=== PATIENT | male | born 1975 | race Caucasian/White ===

== ENCOUNTER 2020-06-01 16:56 | Emergency (ER) | payer MEDICAID, OTHER, SELFPAY ==
[~2020-06-01] VITALS: Ht 180.3 cm; Wt 86.4 kg
[2020-06-01] MEDS ORDERED: DIPHENHYDRAMINE 50 MG/ML, 1ML ONE (17:51)
[2020-06-01] MEDS ORDERED: KETOROLAC 30 MG/1 ML ONE (17:51)
[2020-06-01] MEDS ORDERED: METOCLOPRAMIDE 5 MG/ML, 2ML ONE ×2 (17:51→17:53)
[2020-06-01] MEDS ORDERED: METOCLOPRAMIDE 5 MG/ML, 2ML IVPush ONE (18:00)
[2020-06-01] MEDS ORDERED: KETOROLAC 30 MG/1 ML IVPush ONE (18:00)
[2020-06-01] MEDS ORDERED: DIPHENHYDRAMINE 50 MG/ML, 1ML IVPush ONE (18:00)
[2020-06-01] MEDS ORDERED: SODIUM CHLORIDE 0.9% 1,000ML IVBOLUS ONE (18:00)
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
[2020-06-01 19:01] VITALS: BP 109/62
== END 2020-06-01 19:05 | disposition home or self-care (01) ==
LOC: ED 18:40
DX: G43.109 Migraine with aura, not intractable, without status migrainosus (principal); H53.8 Other visual disturbances; R11.0 Nausea; Z87.891 Personal history of nicotine dependence
CPT/HCPCS: 82962; 96361; 96374; 96375; 99284; J1200; J1885; J2765; J7030

== ENCOUNTER 2020-08-23 13:08 | Emergency (ER) | payer MEDICAID, OTHER ==
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
--- NOTE | 2020-08-23 14:00 | NUR ---
Cj ASTUDILLO at bedside for eval
--- NOTE | 2020-08-23 14:17 | NUR ---
pt to CT scan via [facility]
--- NOTE | 2020-08-23 14:45 | NUR ---
pt has gabriel returned from CT and was resting on gurney with lights dimmed, but has gotten off of the gurney and removed his c-collar as well as his monitoring equipmnt. pt is now anxious and states "I am having anxiety and feeling nauseated" no vomiting. pt back to gurmiami and c-collar back in place. cool washloth to forehead Cj ASTUDILLO notified
[2020-08-23 14:46] VITALS: BP 98/52
--- NOTE | 2020-08-23 15:05 | NUR ---
Cj ASTUDILLO has been to bedside for recheck report to Tara GREEN
== END 2020-08-23 15:24 | disposition home or self-care (01) ==
LOC: ED 15:20
DX: S16.1XXA Strain of muscle, fascia and tendon at neck level, initial encounter (principal); G43.909 Migraine, unspecified, not intractable, without status migrainosus; V29.49XA Motorcycle driver injured in collision with other motor vehicles in traffic accident, initial encounter; Y93.89 Activity, other specified; Y92.410 Unspecified street and highway as the place of occurrence of the external cause; Y99.8 Other external cause status
CPT/HCPCS: 70450; 72125; 99285

== ENCOUNTER 2020-11-23 09:57 | Emergency (ER) | payer MEDICAID, OTHER ==
[~2020-11-23] VITALS: Ht 177.8 cm; Wt 87.7 kg
[2020-11-23 10:15] VITALS: BP 121/68
--- NOTE | 2020-11-23 10:21 | NUR ---
pt presents to ed with c/o R foot pain in heel x 2 weeks. pt a&o, resps even and unlabored, vss, nadn.
[2020-11-23] MEDS ORDERED: KETOROLAC 30 MG/1 ML IM ONE (11:00)
--- NOTE | 2020-11-23 11:54 | NUR ---
pt educated on discharge, verbalized understanding, ambulatory to dc with steady gait.
== END 2020-11-23 11:55 | disposition home or self-care (01) ==
LOC: ED 11:52
DX: M72.2 Plantar fascial fibromatosis (principal)
CPT/HCPCS: 99283